=== PATIENT | male | born 1990 | race African-American/Black ===

== ENCOUNTER 2018-07-27 10:17 | Emergency (ER) | payer BC, OTHER ==
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
--- OUTSIDE RECORDS SUMMARY | 2018-07-27 10:23 | XMS REPORT | Summary of Care ---
:1990 Author Organization [facility] Address [address] [place] [place], [place] [address]- Encounter HQ Encntr_claus(FIN) [id number] Date(s): 05/01/16 - 05/01/[address] [address]- Discharge Disposition: Home or Self Care Attending [...]
--- OUTSIDE RECORDS SUMMARY | 2018-07-27 10:23 | XMS REPORT | Summary of Care ---
:1990 Author Organization [facility] Address [address] [place] [id number] Encounter HQ Jose_claus(FIN) [phone] Date(s): 03/26/16 - 03/29/[address] Professional Services provided by [facility] [place] [address]- Discharge Disposition: Home or Self Care Attending Physician: Vane Garcia MD Admitting Physician: Dg Lambert MD Vital Signs Most recent to oldest [Reference 1 2 3 Range]: Height 182.88 cm (03/26/16 4:34 AM) Temperature Oral [96.4-99.1 DegF] 97.1 DegF 99.0 DegF 99.8 DegF (03/29/16 8:32 AM) (03/29/16 3:29 AM) *HI* (03/28/16 11:14 PM) Blood Pressure [90-140/60-90 126/67 mmHg 115/70 mmHg 112/66 mmHg mmHg] (03/29/16 8:32 AM) (03/29/16 3:29 AM) (03/28/16 11:14 PM) Respiratory Rate [14-20 BRMIN] 18 BRMIN 18 BRMIN 18 BRMIN (03/29/16 8:32 AM) (03/29/16 3:29 AM) (03/28/16 11:14 PM) Peripheral Pulse Rate [60-100 64 bpm 63 bpm 57 bpm bpm] (03/29/16 8:32 AM) (03/29/16 3:29 AM) *LOW* (03/28/16 11:14 PM) Weight 90.909 kg (03/26/16 4:34 AM) Body Mass Index 27.18 m2 (03/26/16 4:34 AM) Problem List No data available for this section Allergies, Adverse Reactions, Alerts Substance Reaction Severity Status NKDA Active Medications acetaminophen-hydrocodone 325 mg-10 mg oral tablet 2 tab, Route: PO, Drug Form: TAB, Dosing Weight 90.909, kg, Q4H, PRN Pain Score 7-10, Start date: 03/26/16 6:26:00 CDT, Duration: 30 day, Stop date: 04/25/16 6: 25:00 CDT Notes: Do not exceed 4gm/day of acetaminophen. (Same as: [place] 325/10) Start Date: 03/26/16 Stop Date: 03/29/16 Status: DiscontinuedANES flumazenil 0.2 mg, 2 mL, Route: IVP, Drug form: INJ, PRN, Dosing Weight 90.909, kg, PRN Benzodiazepine Reversal, Initial dose, Start date: 03/26/16 18:29:00 CDT, Duration: 30 day, Stop date: 04/25/16 18:28:00 CDT Notes: (Same as: Romazicon) Start Date: 03/26/16 Stop Date: 03/26/16 Status: DiscontinuedANES morphine Sulfate 2 mg, 1 mL, Route: IVP, Drug form: INJ, Q5Min, Dosing Weight 90.909, kg, PRN Pain Score 4-6, Start date: 03/26/16 18:29:00 CDT, Duration: 5 doses or times, Stop date: Limited # of times Notes: (Same as:MORPhine Sulfate) Start Date: 03/26/16 Stop Date: 03/26/16 Status: DiscontinuedANES naloxone 0.4 mg, 1 mL, Route: IVP, Drug form: INJ, Q2MIN, Dosing Weight 90.909, kg, PRN Narcotic Reversal, Start date: 03/26/16 18:29:00 CDT, Duration: 8 doses or times , Stop date: Limited # of times Notes: Same as Narcan Start Date: 03/26/16 Stop Date: 03/26/16 Status: DiscontinuedANES ondansetron 4 mg, 2 mL, Route: IVP, Drug form: INJ, ONCE, Dosing Weight 90.909, kg, PRN Nausea & Vomiting, Start date: 03/26/16 18:29:00 CDT Notes: (Same as: Rahul) MEDICATION WASTE Product Size: 4 mgProduct Wasted: ___ mg Start Date: 03/26/16 Stop Date: 03/26/16 Status: DiscontinuedAugmentin 875 mg oral tablet 875 mg=1 tab, PO, BID, X 8 day, # 16 tab, 0 Refill(s) Start Date: 03/28/16 Stop Date: 04/05/16 Status: OrderedAvelox I.V. 400 mg/250 mL intravenous solution 400 mg, Route: IVPB, [id number], Dosing Weight 90.909, kg, Priority: STAT, Start date: 03/26/16 12:18:00 CDT, Duration: 30 day, Stop date: 04/24/16 12:18:00 CDT Start Date: 03/26/16 Stop Date: 03/26/16 Status: Discontinuedcalcium carbonate 500 mg (200 mg elemental calcium) oral tablet 500 mg, 1 tab, Route: PO, Drug form: CHEWTAB, PRN, Dosing Weight 90.909, kg, PRN Abnormal Lab Result, FOR ICU USE ONLY, Start date: 03/26/16 9:56:00 CDT, Duration: 30 day, Stop date: 04/25/16 9:55:00 CDT Notes: (Same As: Antoine)Calcium Carbonate 500 tl=658 mg elemental calcium Dose=_ mg calcium carbonate ( mg elemental calcium) Start Date: 03/26/16 Stop Date: 03/28/16 Status: Discontinuedcalcium carbonate 500 mg (200 mg elemental calcium) oral tablet 1,000 mg, 2 tab, Route: PO, Drug form: CHEWTAB, PRN, Dosing Weight 90.909, kg, PRN Abnormal Lab Result, FOR ICU USE ONLY, Start date: 03/26/16 9:56:00 CDT, Duration: 30 day, Stop date: 04/25/16 9:55:00CDT Notes: (Same As: Auroras)Calcium Carbonate 500 po=744 mg elemental calcium Dose=_ mg calcium carbonate ( mg elemental calcium) Start Date: 03/26/16 Stop Date: 03/28/16 Status: Discontinuedcalcium gluconate + sodium chloride 0.9% INJ 50 mL 1 gm, 10 mL, Route: IVPB, PRN, Dosing Weight 90.909, kg, PRN Abnormal Lab Result , Start date: 03/26/16 9:56:00 CDT, Duration: 30 day, Stop date: 04/25/16 9:55: 00 CDT, FOR ICU USE ONLY Notes: WASTE: F/P - Sink; E - Municipal Trash Bin Start Date: 03/26/16 Stop Date: 03/28/16 Status: DiscontinuedDextrose 50% Syringe 6.25 gm, 12.5 mL, Route: IVP, Drug Form: INJ, Dosing Weight 90.909, kg, PRN, PRN Abnormal Lab Result, Start date: 03/26/16 6:26:00 CDT, Duration: 30 day, Stop date: 04/25/16 6:25:00 CDT Start Date: 03/26/16 Stop Date: 03/29/16 Status: DiscontinuedDextrose 50% Syringe 12.5 gm, 25 mL, Route: IVP, Drug Form: INJ, Dosing Weight 90.909, kg, PRN, PRN Abnormal Lab Result, Start date: 03/26/16 6:26:00 CDT, Duration: 30 day, Stop date: 04/25/16 6:25:00 CDT Start Date: 03/26/16 Stop Date: 03/29/16 Status: DiscontinuedDextrose 50% Syringe 25 gm, 50 mL, Route: IVP, Drug Form: INJ, Dosing Weight 90.909, kg, PRN, PRN Abnormal Lab Result, Start date: 03/26/16 6:26:00 CDT, Duration: 30 day, Stop date: 04/25/16 6:25:00 CDT Start Date: 03/26/16 Stop Date: 03/29/16 Status: Discontinueddocusate 100 mg, 1 cap, Route: PO, Drug form: CAP, Q12H, Dosing Weight 90.909, kg, Start date: 03/26/16 9:00:00 CDT, Duration: 30 day, Stop date: 04/24/16 21:00:00 CDT Notes: (Same as: Colace) (Do Not Crush) Start Date: 03/26/16 Stop Date: 03/29/16 Status: Discontinueddocusate sodium 100 mg oral capsule 100 mg=1 cap, PO, Q12H, # 14 cap, 0 Refill(s) Start Date: 03/28/16 Stop Date: 04/04/16 Status: Orderedheparin 5,000 unit, 1 mL, Route: SUB-Q, Drug form: INJ, Q8H, Dosing Weight 90.909, kg, Start date: 03/27/16 16:00:00 CDT, Duration: 30 day, Stop date: 04/26/16 8:00: 00 CDT Notes: porcine heparin Start Date: 03/27/16 Stop Date: 03/29/16 Status: Discontinuedhydromorphone 1 mg, Route: IVP, ONCE, Dosing Weight 90.909, kg, Priority: STAT, Start date: 6:52:00 CDT, Stop date: 03/26/16 6:52:00 CDT Start Date: 03/26/16 Stop Date: 03/26/16 Status: Completedinsulin regular 100 units/mL human recombinant 3 unit, 0.03 mL, Route: SUB-Q, Drug form: SOLN, PRN, Dosing Weight 90.909, kg, PRN Abnormal Lab Result, Start date: 03/26/16 6:26:00 CDT, Duration: 30 day, Stop date: 04/25/16 6:25:00 CDT Notes: (Same as: Humulin R) Roll in palms of hands gently; Do not shake vigorously. "single patientuse only"(Restricted to patients requiring a dose > 60 units)WASTE: F/P - Black; E - Municipal Trash Bin Stable for 28 days at room temperatureExpires in days from Date Start Date: 03/26/16 Stop Date: 03/29/16 Status: Discontinuedinsulin regular 100 units/mL human recombinant 7 unit, 0.07 mL, Route: SUB-Q, Drug form: SOLN, PRN, Dosing Weight 90.909, kg, PRN Abnormal Lab Result, Start date: 03/26/16 6:26:00 CDT, Duration: 30 day, Stop date: 04/25/16 6:25:00 CDT Notes: (Same as: Humulin R) Roll in palms of hands gently; Do not shake vigorously. "single patientuse only"(Restricted to patients requiring a dose > 60 units)WASTE: F/P - Black; E - Municipal Trash Bin Stable for 28 days at room temperatureExpires in days from Date Start Date: 03/26/16 Stop Date: 03/29/16 Status: Discontinuedinsulin regular 100 units/mL human recombinant 5 unit, 0.05 mL, Route: SUB-Q, Drug form: SOLN, PRN, Dosing Weight 90.909, kg, PRN Abnormal Lab Result, Start date: 03/26/16 6:26:00 CDT, Duration: 30 day, Stop date: 04/25/16 6:25:00 CDT Notes: (Same as: Humulin R) Roll in palms of hands gently; Do not shake vigorously. "single patientuse only"(Restricted to patients requiring a dose > 60 units)WASTE: F/P - Black; E - Municipal Trash Bin Stable for 28 days at room temperatureExpires in days from Date Start Date: 03/26/16 Stop Date: 03/29/16 Status: DiscontinuedIsolyte S PH-7.4 (Bolus) IV 1,000 mL, Route: IV, Dosing Weight 90.909, kg, ONCE, Start date: 03/26/16 5:34: 00 CDT, Stop date: 03/26/16 5:34:00 CDT Start Date: 03/26/16 Stop Date: 03/26/16 Status: CompletedKeflex 500 mg, 1 cap, Route: PO, Drug form: CAP, TID, Dosing Weight 90.909, kg, Start date: 03/26/16 23:24:00 CDT, Duration: 7 day, Stop date: 04/02/16 17:00:00 CDT Notes: Take on empty stomach. (Same As: Keflex) Start Date: 03/26/16 Stop Date: 03/28/16 Status: DiscontinuedKeppra 1,000 mg, Route: IV, ONCE, Dosing Weight 90.909, kg, Priority: STAT, Start date : 03/26/16 5:17:00 CDT, Stop date: 03/26/16 5:17:00 CDT Start Date: 03/26/16 Stop Date: 03/26/16 Status: CompletedLevaquin 750 mg, 150 mL, Route: IV, Drug form: SOLN, Q24H, Start date: 03/26/16 13:00:00 CDT, Duration: 30 day, Stop date: 04/24/16 13:00:00 CDT Notes: (Same as:Levaquin) Start Date: 03/26/16 Stop Date: 03/28/16 Status: DiscontinuedlevETIRAcetam 500 mg, 1 tab, Route: PO, Drug form: TAB, Q12H, Dosing Weight 90.909, kg, Start date: 03/26/16 9:00:00 CDT, Duration: 30 day, Stop date: 04/24/16 21:00:00 CDT Notes: (Same as:Keppra) Start Date: 03/26/16 Stop Date: 03/29/16 Status: DiscontinuedlevETIRAcetam 500 mg oral tablet 500 mg=1 tab, PO, Q12H, # 10 tab, 0 Refill(s) Start Date: 03/28/16 Stop Date: 04/02/16 Status: Orderedmagnesium oxide 800 mg, 2 tab, Route: PO, Drug form: TAB, PRN, Dosing Weight 90.909, kg, PRN Abnormal Lab Result, FOR ICU USE ONLY, Start date: 03/26/16 9:56:00 CDT, Duration: 30 day, Stop date: 04/25/16 9:55:00 CDT Notes: (Same as: Mag-Ox 400)Magnesium oxide 707xo=504sq elemental magnesiumDose= ____mg magnesium oxide (___mg elemental magnesium) Start Date: 03/26/16 Stop Date: 03/28/16 Status: Discontinuedmagnesium sulfate 2 gm, 50 mL, Route: IVPB, Drug form: INJ, PRN, Dosing Weight 90.909, kg, PRN Abnormal Lab Result, Start date: 03/26/16 9:56:00 CDT, Duration: 30 day, Stop date: 04/25/16 9:55:00 CDT, FOR ICU USE ONLY Notes: WASTE: F/P - Sink; E - Municipal Trash Bin Start Date: 03/26/16 Stop Date: 03/28/16 Status: Discontinuedmorphine Sulfate 1 mg, 0.5 mL, Route: IVP, Drug form: INJ, Q1H, Dosing Weight 90.909, kg, PRN Pain Score 7-10, Start date: 03/26/16 6:26:00 CDT, Duration: 30 day, Stop date: 04/25/16 6:25:00 CDT Notes: (Same as:MORPhine Sulfate) Start Date: 03/26/16 Stop Date: 03/29/16 Status: DiscontinuedNeutra-Phos 2 pkt, Route: PO, Drug Form: PDR/REC, Dosing Weight 90.909, kg, PRN, PRN Abnormal Lab Result, FOR ICU USE ONLY, Start date: 03/26/16 9:56:00 CDT, Duration: 30 day, Stop date: 04/25/16 9:55:00 CDT Notes: (Same as: Neutra-Phos) Each 1.25 gm pkt has 250mg phosphorous. Mix w/ 2.5oz water and stir. Start Date: 03/26/16 Stop Date: 03/28/16 Status: Discontinuedondansetron 4 mg, 2 mL, Route: IVP, Drug form: INJ, Q8H, Dosing Weight 90.909, kg, PRN Nausea & Vomiting, Start date: 03/26/16 6:26:00 CDT, Duration: 30 day, Stop date: 04/25/16 6:25:00 CDT Notes: (Same as: Zofran) MEDICATION WASTE Product Size: 4 mgProduct Wasted: ___ mg Start Date: 03/26/16 Stop Date: 03/29/16 Status: Discontinuedpotassium chloride 10 mEq, 50 mL, Route: IVPB, Drug form: INJ, Q1H, Dosing Weight 90.909, kg, Total Dose=40 meq, Start date: 03/26/16 14:00:00 CDT, Duration: 4 doses or times , Stop date: 03/26/16 17:00:00 CDT, Peripheral Line Notes: (Same as: KCL) Infuse over 2 hours. Start Date: 03/26/16 Stop Date: 03/26/16 Status: Completedpotassium chloride 20 mEq, 100 mL, Route: IVPB, Drug form: INJ, PRN, Dosing Weight 90.909, kg, PRN Abnormal Lab Result,Via central line, Start date: 03/26/16 9:56:00 CDT, Duration : 30 day, Stop date: 04/25/16 9:55:00 CDT, FOR ICU USE ONLY Notes: (Same as: KCL) Infuse no faster than 10 mEq/hr if given peripherally. Start Date: 03/26/16 Stop Date: 03/28/16 Status: Discontinuedpotassium chloride 10 mEq, 50 mL, Route: IVPB, Drug form: INJ, PRN, Dosing Weight 90.909, kg, PRN Abnormal Lab Result, Via peripheral line, Start date: 03/26/16 9:56:00 CDT, Duration: 30 day, Stop date: 04/25/16 9:55:00 CDT, FOR ICU USE ONLY Notes: (Same as: KCL) Infuse over 2 hours. Start Date: 03/26/16 Stop Date: 03/28/16 Status: Discontinuedpotassium chloride 20 mEq, 1 tab, Route: PO, Drug form: ERTAB, PRN, Dosing Weight 90.909, kg, PRN Abnormal Lab Result, Start date: 03/26/16 9:56:00 CDT, Duration: 30 day, Stop date: 04/25/16 9:55:00 CDT, FOR ICU USE ONLY Notes: (Same as: K-Dur 20)"Do Not Crush" With food and full glass of water Start Date: 03/26/16 Stop Date: 03/28/16 Status: Discontinuedpotassium chloride 20 mEq, 15 mL, Route: NJ, Drug form: LIQ, PRN, Dosing Weight 90.909, kg, PRN Abnormal Lab Result, Start date: 03/26/16 9:56:00 CDT, Duration: 30 day, Stop date: 04/25/16 9:55:00 CDT, FOR ICU USE ONLY Notes: (Same as: Potassium Chloride) Start Date: 03/26/16 Stop Date: 03/28/16 Status: Discontinuedpotassium phosphate + sodium chloride 0.9% INJ 250 mL 45 mmol, 15 mL, Route: IVPB, PRN, Dosing Weight 90.909, kg, PRN Abnormal Lab Result, Start date: 03/26/16 9:56:00 CDT, Duration: 30 day, Stop date: 04/25/16 9:55:00 CDT, FOR ICU USE ONLY Notes: (Same as: K Phosphate.) 1 mMol phoshate has 1.47 mEq potassium Infuse over 4 hours Start Date: 03/26/16 Stop Date: 03/28/16 Status: Discontinuedpotassium phosphate + sodium chloride 0.9% INJ 250 mL 15 mmol, 5 mL, Route: IVPB, PRN, Dosing Weight 90.909, kg, PRN Abnormal Lab Result, Start date: 03/26/16 9:56:00 CDT, Duration: 30 day, Stop date: 04/25/16 9:55:00 CDT, FOR ICU USE ONLY Notes: (Same as: K Phosphate.) 1 mMol phoshate has 1.47 mEq potassium Infuse over 4 hours Start Date: 03/26/16 Stop Date: 03/28/16 Status: Discontinuedpotassium phosphate + sodium chloride 0.9% INJ 250 mL 30 mmol, 10 mL, Route: IVPB, PRN, Dosing Weight 90.909, kg, PRN Abnormal Lab Result, Start date: 03/26/16 9:56:00 CDT, Duration: 30 day, Stop date: 04/25/16 9:55:00 CDT, FOR ICU USE ONLY Notes: (Same as: K Phosphate.) 1 mMol phoshate has 1.47 mEq potassium Infuse over 4 hours Start Date: 03/26/16 Stop Date: 03/28/16 Status: DiscontinuedSaline Flush 0.9% 10 mL, Route: IVP, Drug Form: INJ, Dosing Weight 90.909, kg, PRN, PRN Line Flush , Start date: 03/26/16 4:37:00 CDT, Duration: 30 day, Stop date: 04/25/16 4:36: 00 CDT Notes: Same as: BD Posiflush Sterile Start Date: 03/26/16 Stop Date: 03/29/16 Status: DiscontinuedSaline Flush 0.9% 10 ml, Route: IVP, Drug Form: INJ, Dosing Weight 90.909, kg, Q12H, Start date: 03/26/16 9:00:00 CDT,Duration: 30 day, Stop date: 04/24/16 21:00:00 CDT Notes: Same as: BD Posiflush Sterile Start Date: 03/26/16 Stop Date: 03/29/16 Status: DiscontinuedSaline Flush 0.9% 10 ml, Route: IVP, Drug Form: INJ, Dosing Weight 90.909, kg, PRN, PRN Line Flush , Start date: 03/26/16 6:26:00 CDT, Duration: 30 day, Stop date: 04/25/16 6:25: 00 CDT Notes: Same as: BD Posiflush Sterile Start Date: 03/26/16 Stop Date: 03/29/16 Status: Discontinuedsenna 8.6 mg, 1 tab, Route: PO, Drug Form: TAB, Dosing Weight 90.909, kg, Q12H, Start date: 03/26/16 9:00:00 CDT, Duration: 30 day, Stop date: 04/24/16 21:00:00 CDT Notes: (Same as: Jimena) Start Date: 03/26/16 Stop Date: 03/29/16 Status: Discontinuedsenna 8.6 mg oral tablet 8.6 mg=1 tab, PO, Q12H, X 7 day, # 14 tab, 0 Refill(s) Start Date: 03/28/16 Stop Date: 04/04/16 Status: Orderedsodium chloride 0.9% 1000 ml INJ 1,000 mL 1,000 mL, Rate: 100 ml/hr, Infuse over: 10 hr, Route: IV, Dosing Weight 90.909 kg, Total Volume: 1,000, Start date: 03/26/16 6:26:00 CDT, Duration: 30 day, Stop date: 04/25/16 6:25:00 CDT Start Date: 03/26/16 Stop Date: 03/29/16 Status: Discontinuedsodium phosphate + sodium chloride 0.9% INJ 250 mL 30 mmol, 10 mL, Route: IVPB, PRN, Dosing Weight 90.909, kg, PRN Abnormal Lab Result, Start date: 03/26/16 9:56:00 CDT, Duration: 30 day, Stop date: 04/25/16 9:55:00 CDT, FOR ICU USE ONLY Start Date: 03/26/16 Stop Date: 03/28/16 Status: Discontinuedsodium phosphate + sodium chloride 0.9% INJ 250 mL 45 mmol, 15 mL, Route: IVPB, PRN, Dosing Weight 90.909, kg, PRN Abnormal Lab Result, Start date: 03/26/16 9:56:00 CDT, Duration: 30 day, Stop date: 04/25/16 9:55:00 CDT, FOR ICU USE ONLY Start Date: 03/26/16 Stop Date: 03/28/16 Status: Discontinuedsodium phosphate + sodium chloride 0.9% INJ 250 mL 15 mmol, 5 mL, Route: IVPB, PRN, Dosing Weight 90.909, kg, PRN Abnormal Lab Result, Start date: 03/26/16 9:56:00 CDT, Duration: 30 day, Stop date: 04/25/16 9:55:00 CDT, FOR ICU USE ONLY Start Date: 03/26/16 Stop Date: 03/28/16 Status: DiscontinuedTylenol with Codeine #3 oral tablet 1 - 2 tab, PO, Q4H, PRN Pain, X 4 day, # 36 tab, 0 Refill(s) Start Date: 03/28/16 Stop Date: 04/01/16 Status: OrderedUnasyn 3 gm, 1 ea, Route: IVPB, Drug form: PDR/INJ, ABXQ6H, Dosing Weight 90.909, kg, Start date: 03/26/16 11:00:00 CDT, Stop date: 04/04/16 23:59:00 CDT Notes: Dosing based on Ampicillin component (Same as: Unasyn) Start Date: 03/26/16 Stop Date: 03/29/16 Status: DiscontinuedVisipaque 320mg/ml 60 mL, Route: IVP, Drug Form: SOLN, Dosing Weight 90.909, kg, ONCALL, STAT, Start date: 03/26/16 6:08:00 CDT, Duration: 1 doses or times, Dose=2.2ml/kg, Max [id number] -- "To be infused by Radiology Staff ONLY" Start Date: 03/26/16 Stop Date: 03/26/16 Status: Completed Results BLOOD BANK RESULTS Most recent to oldest [Reference Range]: 1 2 3 ABO/Rh AB POS *Unknown* (03/26/16 4:36 AM) Antibody Scrn Negative (03/26/16 4:36 AM) ELECTROLYTES Most recent to oldest 1 2 3 [Reference Range]: Sodium Lvl [135-145 mEq/L] 139 mEq/L 138 mEq/L 141 mEq/L (03/28/16 3:52 AM) (03/27/16 12:05 AM) (03/26/16 4:38 AM) Potassium Lvl [3.5-5.1 mEq/L] 3.9 mEq/L 4.1 mEq/L 5.9 mEq/L (03/28/16 3:52 AM) (03/27/16 5:37 AM) *HI* (03/27/16 12:05 AM) Chloride Lvl [95-109 mEq/L] 103 mEq/L 107 mEq/L 104 mEq/L (03/28/16 3:52 AM) (03/27/16 12:05 AM) (03/26/16 4:38 AM) CO2 [24-32 mEq/L] 28 mEq/L 26 mEq/L 20 mEq/L (03/28/16 3:52 AM) (03/27/16 12:05 AM) *LOW* (03/26/16 4:38 AM) AGAP [10.0-20.0 mEq/L] 11.9 mEq/L 10.9 mEq/L 20.0 mEq/L (03/28/16 3:52 AM) (03/27/16 12:05 AM) (03/26/16 4:38 AM) CHEM PANEL Most recent to oldest 1 2 3 [Reference Range]: Creatinine Lvl [0.50-1.40 1.32 mg/dL 1.21 mg/dL 1.77 mg/dL mg/dL] (03/28/16 3:52 AM) (03/27/16 12:05 AM) *HI* (03/26/16 4:38 AM) eGFR 87 mL/min/1.73m2 1 97 mL/min/1.73m2 2 32 mL/min/1.73m2 3 *NA* *NA* *NA* (03/28/16 3:52 AM) (03/27/16 12:05 AM) (03/26/16 4:38 AM) BUN [7-22 mg/dL] 12 mg/dL 15 mg/dL 17 mg/dL (03/28/16 3:52 AM) (03/27/16 12:05 AM) (03/26/16 4:38 AM) Glucose Lvl [70-99 mg/dL] 92 mg/dL 96 mg/dL 171 mg/dL (03/28/16 3:52 AM) (03/27/16 12:05 AM) *HI* (03/26/16 4:38 AM) Calcium Lvl [8.5-10.5 mg/dL] 8.6 mg/dL 8.3 mg/dL 8.9 mg/dL (03/28/16 3:52 AM) *LOW* (03/26/16 4:38 AM) (03/27/16 12:05 AM) Phosphorus [2.5-4.5 mg/dL] 2.6 mg/dL 3.2 mg/dL (03/28/16 3:52 AM) (03/27/16 12:05 AM) Magnesium Lvl [1.8-2.4 2.1 mg/dL 1.9 mg/dL mg/dL] (03/28/16 3:52 AM) (03/27/16 12:05 AM) Lactic Acid Lvl [0.5-2.2 0.8 mMol/L 3.4 mMol/L mMol/L] (03/27/16 12:05 AM) *HI* (03/26/16 4:38 AM) 1Result Comment: The eGFR is calculated using the CKD-EPI formula. In most young , healthy individualsthe eGFR will be >90 mL/min/1.73m2. The eGFR declines with age. An eGFR of 60-89 may be normal in some populations, particularly the elderly, for whom the CKD-EPI formula has not been extensively validated. Use of the eGFR is not recommended in the following populations: Individuals with unstable creatinine concentrations, including patients and those with serious co-morbid conditions. Patients with extremes in muscle mass or diet. The data above are obtained from the National Kidney Disease Education Program ( NKDEP) which additionally recommends that when the eGFR is used in patients with extremes of body mass index for purposesof drug dosing, the eGFR should be multiplied by the estimated BMI.2Result Comment: The eGFR is calculated using the CKD-EPI formula. In most young, healthy individualsthe eGFR will be >90 mL/ min/1.73m2. The eGFR declines with age. An eGFR of 60-89 may be normal in some populations, particularly the elderly, for whom the CKD-EPI formula has not been extensively validated. Use of the eGFR is not recommended in the following populations: Individuals with unstable creatinine concentrations, including patients and those with serious co-morbid conditions. Patients with extremes in muscle mass or diet. The data above are obtained from the National Kidney Disease Education Program ( NKDEP) which additionally recommends that when the eGFR is used in patients with extremes of body mass index for purposesof drug dosing, the eGFR should be multiplied by the estimated BMI.3Result Comment: The eGFR is calculated using the CKD-EPI formula. In most young, healthy individualsthe eGFR will be >90 mL/ min/1.73m2. The eGFR declines with age. An eGFR of 60-89 may be normal in some populations, particularly the elderly, for whom the CKD-EPI formula has not been extensively validated. Use of the eGFR is not recommended in the following populations: Individuals with unstable creatinine concentrations, including patients and those with serious co-morbid conditions. Patients with extremes in muscle mass or diet. The data above are obtained from the National Kidney Disease Education Program ( NKDEP) which additionally recommends that when the eGFR is used in patients with extremes of body mass index for purposesof drug dosing, the eGFR should be multiplied by the estimated BMI.PARATHYROID PROFILE Most recent to oldest [Reference Range]: 1 2 3 Ca Ion WB [1.05-1.25 mMol/L] 1.08 mMol/L 1.08 mMol/L (03/28/16 3:52 AM) (03/27/16 12:05 AM) Ca Norm WB [1.05-1.25 mMol/L] 1.10 mMol/L 1.10 mMol/L (03/28/16 3:52 AM) (03/27/16 12:05 AM) DRUG SCREEN Most recent to oldest [Reference Range]: 1 2 3 U Amph Scr [Negative] Negative *NA* (03/27/16 3:59 AM) U Denae Scr [Negative] Negative *NA* (03/27/16 3:59 AM) U Benzodia Scr [Negative] Positive *ABN* (03/27/16 3:59 AM) U Cocaine Scr [Negative] Negative *NA* (03/27/16 3:59 AM) U Opiate Scr [Negative] Positive *ABN* (03/27/16 3:59 AM) U Phencyc Scr [Negative] Negative *NA* (03/27/16 3:59 AM) U Cannab Scr [Negative] Negative *NA* (03/27/16 3:59 AM) UDS Note See Note (03/27/16 3:59 AM) TOXICOLOGY Most recent to oldest [Reference Range]: 1 2 3 Etoh (%) <0.003 % (03/26/16 4:38 AM) Ethanol Lvl <3.0 mg/dL (03/26/16 4:38 AM) URINE AND STOOL Most recent to oldest [Reference Range]: 1 2 3 UA Turbidity [Clear] Clear (03/27/16 3:59 AM) UA Color [Yellow] Yellow *NA* (03/27/16 3:59 AM) UA pH [5.0-8.0] 6.5 (03/27/16 3:59 AM) UA Spec Grav [<=1.030] 1.011 (03/27/16 3:59 AM) UA Glucose [Negative mg/dL] Negative mg/dL *NA* (03/27/16 3:59 AM) UA Blood [Negative] Negative (03/27/16 3:59 AM) UA Ketones [Negative mg/dL] Negative mg/dL *NA* (03/27/16 3:59 AM) UA Protein [Negative mg/dL] Negative mg/dL (03/27/16 3:59 AM) UA Urobilinogen [0.1-1.0 mg/dL] <=1.0 mg/dL *NA* (03/27/16 3:59 AM) UA Bili [Negative] Negative *NA* (03/27/16 3:59 AM) UA Leuk Est [Negative] Negative (03/27/16 3:59 AM) UA Nitrite [Negative] Negative (03/27/16 3:59 AM) UA WBC [0-5 /HPF] <1 /HPF (03/27/16 3:59 AM) UA RBC [0-2 /HPF] <1 /HPF (03/27/16 3:59 AM) UA Sq Epi None Seen *NA* (03/27/16 3:59 AM) HEMATOLOGY Most recent to oldest 1 2 3 [Reference Range]: WBC [3.7-10.4 K/CMM] 12.0 K/CMM 16.4 K/CMM 17.7 K/CMM *HI* *HI* *HI* (03/28/16 3:52 AM) (03/27/16 12:05 AM) (03/26/16 4:38 AM) RBC [4.70-6.10 M/CMM] 4.74 M/CMM 4.56 M/CMM 5.17 M/CMM (03/28/16 3:52 AM) *LOW* (03/26/16 4:38 AM) (03/27/16 12:05 AM) Hgb [14.0-18.0 g/dL] 13.8 g/dL 12.9 g/dL 15.0 g/dL *LOW* *LOW* (03/26/16 4:38 AM) (03/28/16 3:52 AM) (03/27/16 12:05 AM) Hct [42.0-54.0 %] 40.9 % 39.1 % 43.4 % *LOW* *LOW* (03/26/16 4:38 AM) (03/28/16 3:52 AM) (03/27/16 12:05 AM) MCV [80.0-94.0 fL] 86.2 fL 85.7 fL 84.0 fL (03/28/16 3:52 AM) (03/27/16 12:05 AM) (03/26/16 4:38 AM) MCH [27.0-31.0 pg] 29.1 pg 28.3 pg 29.0 pg (03/28/16 3:52 AM) (03/27/16 12:05 AM) (03/26/16 4:38 AM) MCHC [32.0-36.0 g/dL] 33.7 g/dL 33.0 g/dL 34.5 g/dL (03/28/16 3:52 AM) (03/27/16 12:05 AM) (03/26/16 4:38 AM) RDW [11.5-14.5 %] 13.7 % 13.2 % 13.6 % (03/28/16 3:52 AM) (03/27/16 12:05 AM) (03/26/16 4:38 AM) Platelet [133-450 K/CMM] 199 K/CMM 203 K/CMM 266 K/CMM (03/28/16 3:52 AM) (03/27/16 12:05 AM) (03/26/16 4:38 AM) MPV [7.4-10.4 fL] 9.1 fL 8.8 fL 9.1 fL (03/28/16 3:52 AM) (03/27/16 12:05 AM) (03/26/16 4:38 AM) Segs [45.0-75.0 %] 78.7 % 75.2 % 66.7 % *HI* *HI* (03/26/16 4:38 AM) (03/28/16 3:52 AM) (03/27/16 12:05 AM)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
--- OUTSIDE RECORDS SUMMARY | 2018-07-27 10:23 | XMS REPORT | Summary of Care ---
:1990 Author Organization [facility] [place] Address [address], [place] [address]- Encounter HQ Encntr_alias(FIN) [id number] Date(s): 04/12/16 - 04/12/16 [facility] [place] [address] [place] [address]- [phone] Discharge Disposition: Home or Self Care Attending Physician: Aubrey Whitten MD Vital Signs No data available for [...]
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
--- OUTSIDE RECORDS SUMMARY | 2018-07-27 10:23 | XMS REPORT | Summary of Care ---
:1990 Author Organization [facility] Address [address], [place] [address]- Encounter HQ Encntr_alias(FIN) [id number] Date(s): 04/10/16 - 04/10/[address] [address]- Discharge Disposition: Home or Self Care Attending Physician: Patrick Wells DDS, MD Referring Physician: Patrick eWlls DDS, MD Vital Signs No data available [...]
[2018-07-27] MEDS ORDERED: HYDROCODONE/APAP 5/325 MG TAB ONE ×2 (10:59→15:58)
[2018-07-27 11:06] LABS: Absolute Lymphocytes (CBC) 0.8 K/uL (0.7-4.9); Absolute Neutrophil 4.1 K/uL (1.8-8.0); Basophils % 0.9 % (0-1.3); Eosinophils % 1.1 % (0-4.4); Hematocrit 18.8 % (39.6-49.0); Lymphocytes % 15.3 % (15.3-44.8); MPV 6.4 fL (7.6-11.3); Monocytes % 0.2 % (3.3-12.3); RBC Red Blood Cell Count 1.99 M/uL (4.33-5.43)
[2018-07-27 11:16] LABS: Potassium 3.9 mmol/L (3.5-5.1)
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
[2018-07-27 12:08] LABS: Protime INR 1.49
[2018-07-27] MEDS ORDERED: levETIRAcetam 1,000 MG in NA CHLORIDE 0.9% 100 ML IV SCH (12:15)
[2018-07-27 12:16] LABS: RBC Red Blood Cell Count 1.89 M/uL (4.33-5.43)
[2018-07-27 12:22] LABS: Urine Blood 1+ (NEG); Urine Glucose NEGATIVE (NEG); Urine Specific Gravity 1.015 (1.005-1.030); Urine pH 5.5 (5.0-7.0)
[2018-07-27 12:23] LABS: Urine Protein NEGATIVE (NEG)
[2018-07-27 12:25] LABS: Albumin 3.6 g/dL (3.4-5.0); Bilirubin Direct 0.2 mg/dL (0-0.2); Bilirubin Total 0.9 mg/dL (0.2-1.0)
[2018-07-27 12:34] LABS: Anisocytosis 2+; Blood Morphology Comment NOTED (NOT SEEN); Platelet Estimate DECR; Polychromasia 1+; Teardrop Cell 1+
[2018-07-27 12:39] LABS: Barbiturates NEGATIVE (NEGATIVE); Benzodiazepines NEGATIVE (NEGATIVE); Cocaine NEGATIVE (NEGATIVE); METHAMPHETAM NEGATIVE (NEGATIVE); Methadone NEGATIVE (NEGATIVE); Opiates POSITIVE (NEGATIVE); Phencyclidine NEGATIVE (NEGATIVE); THC Cannibis NEGATIVE (NEGATIVE)
[2018-07-27 13:14] LABS: Urine Bacteria NONE SEEN /HPF (NONE SEEN); Urine Culture Reflex Order NOT NEEDED; Urine RBC <5 /HPF (NONE SEEN)
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
[2018-07-27] MEDS ORDERED: NA CHLORIDE 0.9% 100 ML IV ONE (14:49)
[2018-07-27] MEDS ORDERED: NA CHLORIDE 0.9% 250 ML ONE (17:09)
== END 2018-07-27 17:58 ==
LOC: ER 10:17
DX: D64.9 Anemia, unspecified (principal); C95.90 Leukemia, unspecified not having achieved remission; D69.6 Thrombocytopenia, unspecified
CPT/HCPCS: 36415; 70450; 80048; 80076; 80307; 80320; 81003; 81015; 85025; 85044; 85610; 85652; 86850; 86900; 86901; 96365; 99285; J1953; P9016

== ENCOUNTER 2018-10-20 06:43 | Emergency (ER) | payer OTHER ==
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
--- OUTSIDE RECORDS SUMMARY | 2018-10-20 06:48 | XMS REPORT ---
:1990 [facility] Organization [facility] Address [address] [place] [address] Dr. G[address]am[address] [place] [address] Care Team Providers Name Role Phone Unavailable Unavailable Unavailable Payers Payer Name Policy Type Policy Number Effective Date Expiration Date Problems This patient has no known problems. Allergies, Adverse Reactions, Alerts This patient has no known allergies or adverse reactions. Medications This patient has no known medications. Results Test Description Test Time Test Comments Text Results Atomic Results Result Comments - INJ 2018-09-29 FAX: Cristhian Verduzco MD [phone] [place] : St: REG FAX: Y W 13:15:00 Nithin Caballero [phone] FLUOR EVAL Name: MART TOSCANO [facility] Darragh : CVAD 1990 Age/S: 27/M [address] [place] [address] Unit #: [id number] Loc: [place] [address] Phys : Mara Caballero MD Acct : [id number] Dis Date: Status: REG [facility] PHONE #: [phone] Exam Date: 09/29/2018 1300 FAX #: [phone] Reason: Z45.2/C92.41 EVALUATE FOR LEAK EXAMS: CPT CODE: [id number] INJ W ROB EVAL CVAD [id number] PROCEDURE: Port catheter evaluation with fluoroscopy. INDICATION : Leak from the port site. COMPARISON: None. TECHNICAL: Fluoroscopic time was 0.2 minutes . Reference Air Kerma Dose 15 mGy. PROCEDURE: The procedure, risks, benefits and alternatives were discussed. Informed consent was obtained. Timeout was performed prior to the procedure. All elements of maximal sterile barrier technique were performed. The left chest port catheter site was prepped and draped with sterile technique. The port was accessed with a Agosto needle. Attempted blood aspiration was performed. Contrast was injected into the port with fluoroscopic visualization. Radiographic images were obtained. Port catheter was flushed with saline then packed with Heparin. Agosto needle was removed. FINDINGS: Incubator Machine Operator image shows looping of the port catheter in the left supraclavicular region with tip overlying the left brachiocephalic vein. No evidence of leak. IMPRESSION: 1. Technically successful chest port catheter evaluation with fluoroscopy. 2. Port catheter is looped in the left supraclavicular region with tip within the left brachiocephalic vein. No evidence of leak. at 1315 Reported and signed by: Atilio Bonilla D.O. PAGE 1 Signed Report (CONTINUED) FAX: Cristhian Verduzco MD [phone] [place]: St: REG FAX: Nithin Mazariegos [phone] ------ Name: MART TOSCANO [facility] : 1990 Age/S: 27/M [address] [place] [address] Unit # : [id number] Loc: [place] [address] Phys : Mara Caballero MD Acct : [id number] Dis Date: Status: REG SDC PHONE #: [phone] Exam Date: 09/29/2018 1300 FAX #: [phone] Reason: Z45.2/C92.41 EVALUATE FOR LEAK EXAMS: CPT CODE: [id number] INJ W ROB DUARTE CVAD [id number] <Continued > CC: Cristhian Rushing MD; Mara Caballero MD Technologist: Cristina Ng RT(R) Trnscrd Date/Time/By: 09/29/2018 (8291) : By: [email or web address] Orig Print D/T: S: 09/29/2018 (4829) PAGE 2 Signed Report - XR 2018-09-03 FAX: Cristhian Verduzco MD [phone] [place]: St: REG FAX: Y CHEST 11:02:00 Nithin Caballero [phone] 1 V --------- Name: MART TOSCANO JR [facility] : 1990 Age/S: 27/M [address] [place] [address] Unit # : [id number] Loc: [place] [address] Phys : Mara Caballero MD Acct : [id number] Dis Date: Status: REG CLI PHONE #: [phone] Exam Date: 09/03/2018 1056 FAX #: [phone] Reason: POST OPERATIVE TO VERIFY PAC PLACEMENT EXAMS: CPT CODE: [id number] XR CHEST 1 V 56429 CHEST 1 VIEW: 09/03/2018 COMPARISON: NONE CLINICAL HISTORY: POST OPERATIVE TO VERIFY PAC PLACEMENT FINDINGS: The cardiovascular silhouette is normal in size. Right-sided PICC line tip overlies the SVC. Left subclavian central venous catheter tip overlies the SVC. Lungs are clear. There is no pneumothorax. IMPRESSION: No acute pulmonary disease. at 1102 Reported and signed by: Wesley Zazueta M.D. CC: Cristhian Rushing MD; Mara Caballero MD Technologist: RT Addis(R) Trnscrd Date/Time/By: 09/03/2018 (1102) : By: [email or web address] Orig Print D/T: S: 2018 (9125) PAGE 1 Signed Report
[2018-10-20] MEDS ORDERED: MORPHINE 4 MG/ML SYR ONE (08:17)
[2018-10-20] MEDS ORDERED: NA CHLORIDE 0.9% 1,000 ML ONE (08:17)
[2018-10-20] MEDS ORDERED: ONDANSETRON 4 MG/2 ML VIAL ONE (08:18)
--- NOTE | 2018-10-20 08:35 | RAD REPORT ---
EXAM DESCRIPTION: CT - Head Brain Wo Cont - 10/20/2018 8:08 am CLINICAL HISTORY: Headache COMPARISON: None. TECHNIQUE: Computed axial tomography of the head was obtained. IV contrast was not requested. All CT scans are performed using dose optimization technique as appropriate and may include automated exposure control or mA/KV adjustment according to patient size. FINDINGS: An intracranial bleed is not seen . The ventricles are normal in caliber. No extra-axial fluid collection is noted. Left globe prosthesis Fluid within the sinuses/ mastoids is not seen. IMPRESSION: No acute intracranial abnormality is seen. If patient's symptoms persist MRI of the bra in would be recommended.
[2018-10-20 08:37] LABS: Absolute Lymphocytes (CBC) 1.4 K/uL (0.7-4.9); Absolute Monocytes 0.6 K/uL (0.1-1.3); Absolute Neutrophil 7.5 K/uL (1.8-8.0); Basophils % 0.5 % (0-1.3); Eosinophils % 0.9 % (0-4.4); Hematocrit 45.5 % (39.6-49.0); Lymphocytes % 14.6 % (15.3-44.8); MPV 8.4 fL (7.6-11.3); Monocytes % 6.1 % (3.3-12.3); RBC Red Blood Cell Count 5.16 M/uL (4.33-5.43)
[2018-10-20 08:43] LABS: Protime INR 1.09
[2018-10-20 08:53] LABS: ALT/SGPT 24 U/L (12-78); AST/SGOT 24 U/L (15-37); Albumin 4.4 g/dL (3.4-5.0); Alkaline Phosphatase 107 U/L (45-117); BUN Blood Urea Nitrogen 18 mg/dL (7-18); Bicarbonate 29 mmol/L (21-32); Bilirubin Total 0.7 mg/dL (0.2-1.0); Glucose Level 93 mg/dL (74-106); Potassium 4.1 mmol/L (3.5-5.1); Protein, Total 8.1 g/dL (6.4-8.2); Sodium Level 137 mmol/L (136-145)
[2018-10-20 09:23] LABS: Barbiturates NEGATIVE (NEGATIVE); Benzodiazepines NEGATIVE (NEGATIVE); Cocaine NEGATIVE (NEGATIVE); METHAMPHETAM NEGATIVE (NEGATIVE); Methadone NEGATIVE (NEGATIVE); Opiates NEGATIVE (NEGATIVE); Phencyclidine NEGATIVE (NEGATIVE); THC Cannibis NEGATIVE (NEGATIVE)
[2018-10-20 09:44] LABS: Urine Blood NEGATIVE (NEG); Urine Glucose NEGATIVE (NEG); Urine Protein NEGATIVE (NEG); Urine Specific Gravity 1.015 (1.005-1.030)
--- NOTE | 2018-10-20 09:54 | RAD REPORT ---
EXAM DESCRIPTION: CTHead angio10/20/2018 9:42 am CLINICAL HISTORY: Headache COMPARISON: None TECHNIQUE: CT angiogram of the head was obtained. 3D MIPS reconstruction performed. All CT scans are performed using dose optimization technique as appropriate and may include automated exposure control or mA/KV adjustment according to patient size. FINDINGS: The basilar, internal carotid, anterior cerebral, middle cerebral and posterior cerebral a rteries are normal caliber. An aneurysm is not seen. A significant stenosis is not noted. IMPRESSION: Unremarkable CT angiogram head.
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
== END 2018-10-20 11:11 | disposition home or self-care (01) ==
LOC: ER 06:43
DX: R51 Headache (principal); C95.90 Leukemia, unspecified not having achieved remission; Z88.5 Allergy status to narcotic agent
CPT/HCPCS: 36415; 70450; 70496; 80053; 80307; 81003; 84145; 85025; 85610; 85730; 87040; 87086; 87088; 96374; 96375; 99285; J2405; J7030; Q9967

== ENCOUNTER 2019-12-31 11:51 | Emergency (ER) | payer OTHER ==
--- OUTSIDE RECORDS SUMMARY | 2019-12-31 11:59 | XMS REPORT | Clinical Summary ---
:1990 Author Organization [facility] Address [address] [place] [address] Care Team Providers Name Role Phone MD Stacy Primary Care Provider Allergies Active Allergy Reactions Severity Noted Date Comments Tramadol Other (See Comments) 04/01/2019 Caused hallucinations Medications Medication Sig Dispensed Refills Start Date End Date Status fluconazole Take 200 mg 0 04/01/2019 Disco ntinued (DIFLUCAN) 200 MG by mouth 2 tablet (two) times a day. levoFLOXacin Take 500 mg 0 04/01/2019 Disc ontinued (LEVAQUIN) 500 MG by mouth tablet daily. valACYclovir Take 500 mg 0 04/01/2019 Disc ontinued (VALTREX) 500 MG by mouth tablet daily. 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) 04/02/2019 Hospital Encounter Radiology Cristhian Rushing Acute pr omyelocytic MD Fred leukemia in [facility] ([facility]) 03/24/2019 Transcribe Orders Access Cristhian Rushing 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 Last Filed Vital Signs Vital Sign Reading Time Taken Comments Blood Pressure 114/55 07/13/2019 12:15 PM [employer] Pulse 78 07/13/2019 12:15 PM [employer] Temperature 36.8 C (98.2 F) 07/13/2019 9:29 AM [employer] Respiratory Rate 18 07/13/2019 12:15 PM [employer] Oxygen Saturation 99% 07/13/2019 12:15 PM [employer] Inhaled Oxygen Concentration - - Weight 104 kg (229 lb 1.6 oz) 07/13/2019 9:29 AM [employer] Height 188 cm (6' 2") 07/13/2019 9:29 AM [employer] Body Mass Index 29.41 07/13/2019 9:29 AM [employer] Plan of Treatment Health Maintenance Due Date Last Done Comments INFLUENZA VACCINE 02/20/2020 Procedures Procedure Name Priority Date/Time Associated Diagnosis Comme nts CT BONE MARROW BX W Routine 07/13/2019 11:03 Acute promyelocyt ic Results for this ASP SAME SITE AM [employer] leukemia in remission proce dure are in (HCC) the results section. SURGICAL PATHOLOGY Routine 07/13/2019 10:20 Resul ts for this REQUEST AM [employer] procedure are i n the results section. MISCELLANEOUS REFERRAL Routine 07/13/2019 10:20 R esults for this TEST AM [employer] procedure are i n the results section. FLOW CYTOMETRY Routine 07/13/2019 10:20 Results f or this EVALUATION AM [employer] procedure are i n the results section. RETICULOCYTE COUNT Routine 07/13/2019 9:15 Resul ts for this AM [employer] procedure are i n the results section. PARTIAL THROMBOPLASTIN Routine 07/13/2019 9:15 R esults for this TIME (PTT) AM [employer] procedure are i n the results section. PROTHROMBIN TIME WITH Routine 07/13/2019 9:15 Re sults for this INR AM [employer] procedure are i n the results section. HC COMPLETE BLD COUNT Routine 07/13/2019 9:15 Re sults for this W/AUTO DIFF AM [employer] procedure are i n the results section. CT BONE MARROW BX W Routine 04/02/2019 10:54 Acute promyelocyt ic Results for this ASP SAME SITE AM CDT leukemia in remission proce dure are in (HCC) the results section. SURGICAL PATHOLOGY Routine 04/02/2019 10:30 Resul ts for this REQUEST AM CDT procedure are i n the results section. FLOW CYTOMETRY Routine 04/02/2019 10:30 Results f or this EVALUATION AM CDT procedure are i n the results section. MISCELLANEOUS REFERRAL Routine 04/02/2019 10:30 R esults for this TEST AM CDT procedure are i n the results section. MISCELLANEOUS REFERRAL Routine 04/02/2019 10:30 R esults for this TEST AM CDT procedure are i n the results section. RETICULOCYTE COUNT Routine 04/02/2019 9:00 Resul ts for this AM CDT procedure are i n the results section. PARTIAL THROMBOPLASTIN Routine 04/02/2019 9:00 R esults for this TIME (PTT) AM CDT procedure are i n the results section. PROTHROMBIN TIME WITH Routine 04/02/2019 9:00 Re sults for this INR AM CDT procedure are i n the results section. HC COMPLETE BLD COUNT Routine 04/02/2019 9:00 Re sults for this W/AUTO DIFF AM CDT procedure are i n the results section. after 12/30/[address] Bone Marrow Bx W Asp Same Site (07/13/2019 11:03 AM [employer])Only the most recent of2 resultswithin the time period is included. 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 The patient was placed prone on the CT table. The back was prepped and draped in a sterile manner. A timeout wa s performed to verify the patient's identity and the pro posed procedure. 1% lidocaine was given for local anesthe walter. Under physician supervision, Versed 2.5 mg IV and fent anyl 125 mcg IV administered intravenously for moderate sedation. Puls e oximetry, heart rate, blood pressure were continuously monitored by e nurse. The radiologist spent 18 minutes of face-to- face sedation time with the patient. Under CT guidance, an 11-gauge bone marrow biopsy need le was advanced in the posterior Right iliac bone. Approximately 11 cc of bone marrow aspirate was obtained and was given to the pathology t echnologist. A bone marrow biopsy was then performed. T needles were withdrawn and gentle pressure was applied to the puncture site. The patient tolerated the procedure well without any immediate complications. The patient was transferred to outpatie nt surgery in stable condition. IMPRESSION: CT-guided right iliac bone marrow aspira tion and biopsy. 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 The patient was placed prone on the CT table. The back was prepped and draped in a sterile manner. A timeout was performed to verify the patient's identi ty and the proposed procedure. 1% lidocaine was given for local anesthesia. Under physician supervision, Versed 2.5 mg IV and fentanyl 125 mcg IV administered intravenously for moderate sedation. Pulse oximetry, heart rate, blood pressure were continuously monitored by the nurse. The radiologist spent 18 minutes of face-to- face sedation time with the patient. Under CT guidance, an 11-gauge bone gerard ow biopsy needle was advanced in the posterior Right iliac bone. Approximately 11 cc of bone marrow aspirate was obtained and was given to the nuclear medical technologist. A bone marrow biopsy was then performed. The needles were withdrawn and gentle pressu re was applied to the puncture site. The patient tolerated the procedure well without any immediate complications. The patient was transferred to outpatient surgery in stable condition. IMPRESSION: CT-guided right iliac bone marrow aspira tion and biopsy. total DLP: 124.63 mGy-cm [id number] Performing Organization Address City/State/Zipcode Phone Number [facility] [address] [place] [address] Miscellaneous referral test (07/13/2019 10:20 AM [employer])Only the most recent of3 resultswithin the time period is included. Mis test name [facility] SHOWN ABOVE Mis test result see note SHOWN ABOVE Comment: CHROMOSOME/FISH ANALYSIS ONCOLOGY Chromosome Analysis Indication: APL Sample Type: BONE MARROW METHOD OF ANALYSIS: GTG-Banding RESULTS:999 46,XY[20] INTERPRETATION : Normal male chormosome analysis with no clonal abnorma lities observed. A Cancer Chromosomal Microarray Analysis (Test Code 95 15) is also available to evaluate genomic aberrations that could be missed b y conventional cytogenetic analysis. FISH ONCOLOGY ANALYSIS Method of Analysis: FISH FISH Nuclei examined: 1000 Results: NORMAL: 8 Centromere (D8Z2x2) - Gain of chromosome 8 NOT detec brice t(8;21)(q22;q22) (WMAZ9T6/RUNX1) - Translocation NOT d etected 11q23 (KMT2A) - Rearrangement NOT detected t(15;17)(q24;q21) (PML/ERIK) - Translocation NOT detec brice inv(16)(p13.1q22) or t(16;16) (CBFB) - Rearrangement N OT detected INTERPRETATION : Normal FISH analysis for the above loci. Fluorescence in situ hybridization (FISH) studies were performed on this specimen using a panel of DNA probes as listed above d esigned to detect abnormalities frequently observed in acute myeloid salena kemia (AML). At least two hundred nuclei were analyzed for each probe, and a ll probe sets scored within their normal ranges. Therefore, these results a re interpreted as normal. ISCN: nuc merrill(D8Z2,TAQX8C5,KMT2A,PML,CBFB,ERIK,RUNX1)x 2[200] Test performed by: [facility] [place] [phone] Specimen Narrative Performed At [id number] [facility] DEPARTMENT OF PATHOLOGY AND GENOMIC MEDICINE Performing Organization Address City/State/Zipcode Phone Number [facility] DEPARTMENT OF PATHOLOGY AND [address] [place], [place] [address] [employer] SHOWN ABOVE Flow cytometry evaluation (07/13/2019 10:20 AM [employer])Only the most recent of2 resultswithin the time period is included. [facility] Flow cytometry See link below LEVY YAZIDI evaluation for PDF Lab HOSPITAL Report Specimen Narrative Performed At This result has an attachment that is no t available. Performing Organization Address City/State/Zipcode Phone Number [facility] DEPARTMENT OF PATHOLOGY AND [address] [place], [place] [address] [facility] Surgical pathology request (07/13/2019 10:20 AM [employer])Only the most recent of2 resultswithin the time period is included. [facility] DEPARTMENT OF PATHOLOGY AND GENOMIC [facility] Surgical pathology See link below [facility] DEPARTMENT OF report for PDF Lab PATHOLOGY AND Report GENOMIC MEDICINE Result status This is Final [facility] DEPARTMENT OF Report for PATHOLOGY AND [id number] GENOMIC MEDICINE Specimen Performing Organization Address [facility] Phone Number [facility] DEPARTMENT OF PATHOLOGY AND [id number] [place] [address] [place] [address] [facility] Partial thromboplastin time, activated (07/13/2019 9:15 AM [employer])Only the most recent of2 resultswithin the time period is included. Pathologist [facility] PTT 29.0 23.0 - 36.0 [facility] Comment: [facility] PTT therapeutic range for unfractionated heparin is HOSPITAL 61.0-112.0 seconds which corresponds to Anti-Xa 0.3-0.7 U/ml. Specimen Blood Performing Organization Address [facility] Phone Number [facility] DEPARTMENT PATHOLOGY AND [id number] [place] [address] [place] [address] [place], [place] [address] [facility] Prothrombin time with INR (07/13/2019 9:15 AM [employer])Only the most recent of2 resultswithin the time period is included. Pathologist [facility] Prothrombin time 13.1 11.5 - 14.5 [facility] INR 1.0 [place] Comment: [facility] [employer] Normalized Ratio (INR) is a [facility] monitoring tool for patients who are stable on oral anticoagulant therapy. An INR of 2.0-3.0 is suggested for deep vein thrombosis/pulmonary embolism. Specimen Blood Performing Organization Address City/[facility] Phone Number [facility] DEPARTMENT PATHOLOGY AND [address] [place] [address] [facility] [address] [place] [address] Reticulocyte count (07/13/2019 9:15 AM [employer])Only the most recent of2 results within the time period is included. Pathologist Sig nature Retic %, auto 1.6 0.5 - 2.1 % [facility] Retic absolute, auto 0.0907 0.0220 - 0.1260 [facility] m/uL [facility] Specimen Performing Organization Address City/State/Zipcode Phone Number [facility] DEPARTMENT OF PATHOLOGY AND [address] [place] [address] [facility] [address] [place] [address] CBC with platelet and differential (07/13/2019 9:15 AM [employer])Only the most recent of2 resultswithin the time period is included. Pathologist [facility] WBC 10.11 4.50 - 11.00 k/uL [facility] RBC 5.53 4.40 - 6.00 m/uL [facility] HGB 16.3 14.0 - 18.0 g/dL [facility] HCT 47.9 41.0 - 51.0 % [facility] MCV 86.6 82.0 - 100.0 fL [facility] MCH 29.5 27.0 - 34.0 pg [facility] MCHC 34.0 31.0 - 37.0 g/dL [facility] RDW - SD 41.8 37.0 - 55.0 fL [facility] MPV 10.3 8.8 - 13.2 fL [facility] Platelet count 237 150 - 400 k/uL [facility] Nucleated RBC 0.00 /100 WBC [facility] Neutrophils 68.5 39.0 - 69.0 % [facility] Lymphocytes 20.1 (L) 25.0 - 45.0 % [facility] Monocytes 8.0 0.0 - 10.0 % [facility] Eosinophils 2.2 0.0 - 5.0 % [facility] Basophils 0.7 0.0 - 1.0 % [facility] Specimen Blood Performing Organization Address City/State/Zipcode Phone Number [facility] DEPARTMENT OF PATHOLOGY AND [address] [place] [address] GENOMIC MEDICINE [facility] 

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
--- OUTSIDE RECORDS SUMMARY | 2019-12-31 12:03 | XMS REPORT | Continuity of Care Document ---
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 catheter was flushed with saline then packed with Heparin. Agosto needle was removed. FINDINGS: Dental Ceramist Assistant image shows looping of the port catheter [...] D.O. PAGE 1 Signed Report (CONTINUED) FAX: Annemarie Verduzco MD [phone] [place]: St: REG FAX: Nithin Mazariegos [phone] Name: MART TOSCANO JR [facility] : 1990 Age/S: 27/M [address] [place] [address] Unit #: [id number] Loc: [place] [address] Phys: Mara Caballero MD Acct: [id number] Dis Date: Status: REG [facility] PHONE #: [phone] Exam Date: 09/29/2018 1300 FAX #: [phone] Reason: Z45.2/C92.41 EVALUATE FOR LEAKEXAMS: CPT CODE: [id number] INJ W FLUOR EVAL CVAD 91366 <Continued> CC: Annemarie Rushing MD; Mara Caballero MD Technologist: Cristina Ng RT(R) Trnmetiarra Date/Time/By: 09/29/2018 (3583) : By: [email or web address] Orig Print D/T: S: 09/29/2018 (4165) PAGE 2 Signed Report- XR CHEST 1 [id number] 11:02:00 FAX: Annemarie Verduzco MD [phone] [place]: St: REG FAX: Nithin Mazariegos [phone] Name: MART TOSCANO JR [facility] : 1990 Age/S: 27/M [address] [place] [address] Blvd Unit #: [id number] [facility]: [facility] [place] [address] Phys: Mara Caballero MD Acct: [id number] Dis Date: Status: REG CLI PHONE #: [phone] Exam Date: 09/03/2018 1056 FAX #: [phone] Reason: POST OPERATIVE TO VERIFY PAC PLACEMENT EXAMS: CPT CODE: [id number] XR CHEST 1 V 71201 CHEST 1 VIEW: 09/03/2018 COMPARISON: NONE CLINICAL HISTORY: POST OPERATIVE TO VERIFY PAC PLACEMENT FINDINGS: The cardiovascular silhouette is normal in size. Right-sided PICC line tip overlies the SVC. Left subclavian central venous catheter tip overlies the SVC. Lungs are clear. There is no pneumothorax. IMPRESSION: No acute pulmonary disease. at 1102 Reported and signed by: Wesley Zazueta M.D. CC: Annemarie Rushing MD; Mara Caballero MD Technologist: Lina Meza, RT(R) Trnscrd Date/Time/By: 09/03/2018 (3647) : By: [email or web address] Orig Print D/T: S: 09/03/2018 (3195) PAGE 1 Signed ReportCHEM JKHJE6973-31-23 08:52:002.6[facility]annCHEM JAWQV2781-67-98 08:52:0087[facility]annCHEM WIBPY0959-41-00 08:52:77945Cndlwrpk HermannCHEM TVTKB4480-00-30 08:52:0028 [facility]annCHEM QNLEL2424-14-84 08:52:008.6[facility] HermannCHEM PANEL 2016-03-28 08:52:001.32[facility] HermannCHEM QEGIF9747-29-27 08:52:60907Mcsrmalv HermannCHEM VIAEH3486-38-07 08:52:0092[facility] HermannCHEM MYEIZ4025-96-15 08:52:0012[facility] HermannCHEM ESSVW8747-61-84 08:52:003.9[facility] HermannCHEM PSQWI5462-74-65 08:52:0011.9[facility] HermannCHEM VZNEB6950-37-91 08:52:002.1 [facility] ZnikrhiQOYXIOKFTK8304-99-58 08:52:000.1[facility] HermannHEMATOLOGY 2016-03-28 08:52:001.1[facility] ByuczrrLSRYRLGQLG3474-54-01 08:52:000.1[facility] GrmtvbnIKLGRKQUIZ8215-08-00 08:52:001.3[facility] WxfpyszDDLQGMYOBI3760-34-11 08:52:000.5[facility] EjwkoswYUOPLCIPDI0825-32-93 08:52:000.5[facility] JHZWCTJMFH8676-34-79 08:52:009.4[facility] DjpzmzrFKKVJXLGPL6612-29-49 08:52:00 11.1[facility] XjsikkwHLDWLFFVDI9755-30-67 08:52:0078.7[facility] HermannHEMATOLOGY 2016-03-28 08:52:009.2[facility] WdmruurIDIXYDPHIV0913-90-45 08:52:009.1[facility] BswcufiLHZQBORWWO9389-63-64 08:52:00 Test Item Value Reference Range Interpretation Comments MCH (test code = MCH) 29.1 pg 27.0-31.0 [facility] FirrhlnVOBEWHBPKX5926-30-11 08:52:31906Vqvlcldz HermannHEMATOLOGY 2016-03-28 08:52:0013.7[facility] WoznxxcLHNBXMVGYQ9153-67-99 08:52:0033.7[facility] OghfxqpUJFKHAZTBC9938-99-98 08:52:0013.8[facility] KpqkejsRHESHRBWHF2787-20-25 08:52:0086.2[facility] DauvqioHSOQDXTASF3146-26-81 08:52:0040.9[facility] QJUTGLJKMA9566-91-29 08:52:004.74[facility] MduavofIOWUHDHWLA8083-19-35 08:52:00 12.0[facility] HermannPARATHYROID HLMHWBG5495-86-16 08:52:001.08[facility] PARATHYROID XDFSRHT1210-04-91 08:52:001.10[facility] HermannBACTERIAL - SEROLOGY 2016-03-27 15:27:00Negative (03/27/16 10:27 AM)[facility] HermannELECTROLYTES 2016-03-27 10:37:004.1[facility] HermannDRUG OSIIAO1564-14-86 08:59:19Negative *NA*(03/27/16 3:59 AM)[facility]annDRUG JBDZNP6902-84-63 08:59:19Negative *NA*(03/27/16 3:59 AM)[facility]annDR[facility] FUXIZB4650-63-86 08:59:19Positive *ABN*(03/27/16 3:59 AM)[facility] HermannDRUG JOAONR2982-98-77 08:59:19Negative *NA*(03/27/16 3:59 AM)[facility]annDR[facility] PYKDEN9820-03-95 08:59:19See Note (03/27/16 3:59 AM)[facility]annDRUG OUYHIE8746-17-56 08:59:19Negative *NA*(03/27/16 3:59 AM)[facility]annDR[facility] BMICBE1042-46-17 08:59:19Positive *ABN*(03/27/16 3:59 AM)[facility] HermannDRUG VMJFAV7555-26-85 08:59:19Negative *NA*(03/27/16 3:59 AM)[facility]ann[facility] AND FGJOG6759-13-98 08:59:196.5 [facility] AND PFQDC4522-87-41 08:59:19Negative (03/27/16 3:59 AM) [facility] XXFGF8818-46-26 08:59:19Negative (03/27/16 3:59 AM) [facility] HHUVA2791-70-04 08:59:19Negative *NA*(03/27/16 3:59 AM) [facility] UFZQB6509-68-91 08:59:19<1[facility] AND TINRF6089-46-47 08:59:19<1[facility] AND EJUSP4878-77-05 08:59:19 Negative (03/27/16 3:59 AM)[facility] CBHSI4618-92-04 08:59:19 Yellow *NA*(03/27/16 3:59 AM)[facility] AND JSKMV8111-15-99 08:59:19 1.011[facility]ann[facility] AND QEMAR1630-16-12 08:59:19Clear (03/27/16 3:59 AM) [facility] HermannCHEM BGWGY3013-33-50 05:05:000.8[facility] HermannCHEM PANEL 2016-03-27 05:05:001.9[facility] HermannCHEM BMAYB6035-37-46 05:05:003.2[facility] KwdqsagZJXDBYXGAYJR9686-10-29 05:05:005.9[facility] UcvacsgHKBKRRASEGTW7489-18-78 05:05:0026[facility] OvljdslQBZHJZFLNCFD4764-41-02 05:05:0010.9[facility] TYMYIBKUSHYE0183-18-83 05:05:69466Wjrbgsmj NyepszrJHHARNEWTOWV5312-68-45 05:05:008.3[facility] CjditdrFJDCKIHPVTDT4253-54-19 05:05:0097[facility] VCUQQFTRLDKL2214-60-40 05:05:0096[facility] YwhazonDKVWQYTWGVVU6728-03-97 05:05:00 15[facility] VguuqlqCEKOASTPMSQQ6192-06-98 05:05:27505Qqvbbfdw HermannELECTROLYTES 2016-03-27 05:05:001.21[facility] FxzwqyuSXRBCZMDYW9249-97-55 05:05:00 Test Item Value Reference Range Interpretation Comments PT (test code = PT) 15.4 s 12.0-14.7 [facility] NkfceohZJZHOHXVDB1580-78-21 05:05:001.19[facility] HermannHEMATOLOGY 2016-03-27 05:05:00 Test Item Value Reference Range Interpretation Comments PTT (test code = PTT) 24.1 s 22.9-35.8 [facility] IlznqypTGQUHOANUN4558-18-06 05:05:0013.2[facility] HermannHEMATOLOGY 2016-03-27 05:05:11482Plutyvrz KlwguugGWTMRBVCFP4943-72-93 05:05:008.8[facility] ZgudszwYHAYCLXATE8902-89-38 05:05:0016.4[facility] SongltuVETNYFZAGG6174-71-01 05:05:004.56[facility] ZeifeaiTXZPELPIJK7281-42-10 05:05:0012.9[facility] LJJGRLABRI2455-37-60 05:05:0039.1[facility] IlrzcydSQNLDHUPKR8044-18-61 05:05:00 85.7[facility] BgoscutMTJWCSDVTD6453-21-10 05:05:0033.0[facility] HermannHEMATOLOGY 2016-03-27 05:05:00 Test Item Value Reference Range Interpretation Comments MCH (test code = MCH) 28.3 pg 27.0-31.0 [facility] QjhwwnxCEIASDPPBL8764-96-13 05:05:009.4[facility] HermannHEMATOLOGY 2016-03-27 05:05:0075.2[facility] EczjyvsGRIDZCBHQO1312-63-29 05:05:0014.7[facility] KvapkdiHNREPAIXVT6703-12-63 05:05:000.3[facility] MespxlqAWVYIAWXMO2780-90-13 05:05:000.4[facility] IlqzcmzJMUREIOHGU0496-89-88 05:05:001.5[facility] CJAFKHJJYI3961-66-72 05:05:0012.4[facility] OagvfutFTIQVRBHQI5411-51-71 05:05:00 2.4[facility] AqbdfajWNHXWPUQMH9533-93-49 05:05:000.1[facility] HermannPARATHYROID TXJBWKI9005-64-32 05:05:001.10[facility] HermannPARATHYROID WIGBUHA7945-68-06 05:05:001.08[facility] HermannCHEM KAQGD0645-63-06 09:38:003.4[facility] HermannCHEM UAKDW7564-94-31 09:38:0032[facility] HermannCHEM YLHSL6727-31-14 09:38:0020 [facility] HermannCHEM VRDKV6096-63-51 09:38:23865Iisviqkb HermannCHEM PANEL 2016-03-26 09:38:008.9[facility] HermannCHEM VKXJZ5136-45-38 09:38:0020.0[facility] HermannCHEM XUKYN5588-07-40 09:38:0017[facility] HermannCHEM EPWLV1882-03-53 09:38:75615Uixomhwe HermannCHEM EMBPQ2001-44-22 09:38:13786Ddixanbb HermannCHEM YHZSV3338-75-08 09:38:001.77[facility] HbjaalhUMSZOJSLSE5418-41-43 09:38:000.6 [facility] PsrkscuGNQIITXYDM5774-11-06 09:38:008.9[facility] HermannHEMATOLOGY 2016-03-26 09:38:0066.7[facility] WpqhubbCZMFDRJFEE0965-07-57 09:38:0023.2[facility] ZgmiajnKPWEPGIBSS8026-83-43 09:38:000.1[facility] UsdtdwyLMENRMYFOZ8604-55-20 09:38:001.6[facility] PxmirpzCZIUSTGCEJ4776-76-88 09:38:000.1[facility] CNKKTMVODC7445-57-39 09:38:0011.8[facility] RhgwqhqCHVCXPEHPF5792-61-32 09:38:00 4.1[facility] WtjmgosZQNPKTACJP5404-55-60 09:38:000.6[facility] HermannHEMATOLOGY 2016-03-26 09:38:00 Test Item Value Reference Range Interpretation Comments Max Amplitude Rapid (test code = Max 60 mm 52-71 Amplitude Rapid) [facility] PipxzviPLZJAIIQAI7644-08-10 09:38:002.2[facility] HermannHEMATOLOGY 2016-03-26 09:38:007.4[facility] ZtzbqzvXISPYGGLEL0752-96-35 09:38:00 Test Item Value Reference Range Interpretation Comments Split Point Rapid (test code = Split 0.7 min Point Rapid) [facility] EppslqxLFUDHBTXRD1980-49-71 09:38:00 Test Item Value Reference Range Interpretation Comments R-time Rapid (test code = R-time 0.8 min 0.4-0.7 Rapid) [facility] FaahwlsGLFNGEZSTT5144-73-57 09:38:00 Test Item Value Reference Range Interpretation Comments Angle Rapid (test code = Angle 74 degrees 64-80 Rapid) [facility] CenterDxenetbFLTVCTLHLB5981-93-33 09:38:00 Test Item Value Reference Range Interpretation Comments K-time Rapid (test code = K-time 1.3 min 0.6-2.3 Rapid) [facility] CenterDjcwdfbABIZMUXFJI6436-28-66 09:38:00 Test Item Value Reference Range Interpretation Comments ACT (TEG) Rapid (test code = ACT (TEG) 121 s 86-118 Rapid) [facility] CenterKelotcsOZRAIQUNUS3264-33-26 09:38:27865Gxnzdxsn HermannHEMATOLOGY 2016-03-26 09:38:0034.5[facility] QjpalwsTVMJCRHCPC6532-33-56 09:38:009.1[facility] SythtzxIHZGJHEUWV3879-18-25 09:38:0013.6[facility] TrccnwoVFIPEOWWIQ5192-05-67 09:38:00 Test Item Value Reference Range Interpretation Comments MCH (test code = MCH) 29.0 pg 27.0-31.0 [facility] ZhogxpnWWHMYQEUDD4766-29-21 09:38:0043.4[facility] HermannHEMATOLOGY 2016-03-26 09:38:0015.0[facility] HxxsyhrZWXRZKPUPX0340-39-24 09:38:005.17[facility] EdnrzfgCSYGMYXSJA6151-91-61 09:38:0017.7[facility] SvcnpmvJSPXLNADRF5906-31-91 09:38:0084.0[facility]annBL[facility] VEEWGNC8469-49-90 09:36:00Negative (03/26/16 4:36 AM)[facility]
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
[2019-12-31 14:03] VITALS: BP 128/75; TEMP 97.2; O2SAT 99
== END 2019-12-31 13:58 | disposition home or self-care (01) ==
LOC: ER 11:51
DX: M54.5 Low back pain (principal); M54.2 Cervicalgia; V49.50XA Passenger injured in collision with unspecified motor vehicles in traffic accident, initial encounter; Z88.5 Allergy status to narcotic agent
CPT/HCPCS: 70450; 72125; 99284